=== PATIENT | female | born 1975 | race Caucasian/White ===

== ENCOUNTER 2016-03-20 17:31 | Emergency (ER) | payer OTHER ==
[2016-03-20 17:41] VITALS: BP 149/91; PULSE 75; TEMP 97.8; BMI 30.7
--- NOTE | 2016-03-20 19:48 | PDOC ---
History of Present Illness - General Chief Complaint: Migraine Headache Stated Complaint: HEADACHE Time Seen by Provider: 03/20/16 19:05 History Source: Patient Exam Limitations: No Limitations - History of Present Illness Timing/Duration: reports: 4-6 hours Severity: Yes: mild Associated Symptoms: reports: nausea/vomiting, other (photophobia/phonophobia) Past History - Travel Traveled outside of the country in the last 30 days: No Close contact w/someone who was outside of country & ill: No - Past Medical History Allergies/Adverse Reactions: Allergies Allergy/AdvReac Type Severity Reaction Status Date / Time No Known Allergies Allergy Verified 03/20/16 17:40 Home Medications: Ambulatory Orders No Home Medications 0 dose .ROUTE UTDICT 05/12/13 Anemia: No Asthma: No Cancer: No Cardiac Disorders: No CVA: No COPD: No CHF: No Dementia: No Diabetes: No GI Disorders: No Disorders: No HTN: No Hypercholesterolemia: No Liver Disease: No Seizures: No Thyroid Disease: No Other medical history: Migrane - Surgical History Abdominal Surgery: No Appendectomy: No Cardiac Surgery: No Cholecystectomy: No Lung Surgery: No Neurologic Surgery: No Orthopedic Surgery: No - Immunization History Immunization Up to Date: Yes - Psycho/Social/Smoking Cessation Hx Anxiety: No Suicidal Ideation: No Smoking History: Never smoked Number of Cigarettes Smoked Daily: 0 Information on smoking cessation initiated: No Hx Alcohol Use: No Drug/Substance Use Hx: No Substance Use Type: None Hx Substance Use Treatment: No Neuro Specific PMHX - Complaint Specific PMHX Migraine: Yes Review of Systems - Review of Systems Able to Perform ROS?: No Comments:: 03/20/16 20:59 CONSTITUTIONAL: Absent: fever, chills, diaphoresis, generalized weakness, malaise, loss of appetite HEENT: Absent: rhinorrhea, nasal congestion, throat pain, throat swelling, difficulty swallowing, mouth swelling, ear pain, eye pain, visual Changes CARDIOVASCULAR: Absent: chest pain, loss of consciousness, palpitations, irregular heart rate, peripheral edema RESPIRATORY: Absent: cough, shortness of breath, dyspnea with exertion, orthopnea, wheezing, stridor, hemoptysis GASTROINTESTINAL: Absent: abdominal pain, abdominal distension, nausea, vomiting, diarrhea, constipation, melena, hematochezia GENITOURINARY: Absent: dysuria, frequency, urgency, hesitancy, hematuria, flank pain, genital pain MUSCULOSKELETAL: Absent: myalgia, arthralgia, joint swelling SKIN: Absent: rash, itching, pallor HEMATOLOGIC/IMMUNOLOGIC: Absent: easy bleeding, easy bruising, lymphadenopathy, frequent infections ENDOCRINE: Absent: unexplained weight gain, unexplained weight loss, heat intolerance, cold intolerance NEUROLOGIC: +hearn Absent: focal weakness or paresthesias, dizziness, unsteady gait, seizure, mental status changes, bladder or bowel incontinence PSYCHIATRIC: Absent: anxiety, depression, suicidal or homicidal ideation, hallucinations. Is the patient limited [place]ian proficient: Yes *Physical Exam - Vital Signs Last Vital Signs Temp Pulse Resp BP Pulse Ox 97.8 F 75 18 149/91 96 03/20/16 17:39 03/20/16 17:39 03/20/16 17:39 03/20/16 17:39 03/20/16 17:39 - Physical Exam Comments: 03/20/16 20:59 GENERAL: Well developed, well nourished. Awake and alert. No acute distress. HEENT: Normocephalic, atraumatic. PERRLA, EOMI. No conjunctival pallor. Sclera are non- icteric. Moist mucous membranes. Oropharynx is clear. NECK: Supple. Full ROM. No JVD. Carotid pulses 2+ and symmetric, without bruits. No thyromegaly. No lymphadenopathy. CARDIOVASCULAR: Regular rate and rhythm. No murmurs, rubs, or gallops. Distal pulses are 2+ and symmetric. PULMONARY: No evidence of respiratory distress. Lungs clear to auscultation bilaterally. No wheezing, rales or rhonchi. ABDOMINAL: Soft. Non-tender. Non-distended. No rebound or guarding. No organomegaly. Normoactive bowel sounds. MUSCULOSKELETAL Normal range of motion at all joints. No bony deformities or tenderness. No CVA tenderness. EXTREMITIES: No cyanosis. No clubbing. No edema. No calf tenderness. SKIN: Warm and dry. Normal capillary refill. No rashes. No jaundice. NEUROLOGICAL: Alert, awake, appropriate. Cranial nerves 2-12 intact. No deficits to light touch and temperature in face, upper extremities and lower extremities. No motor deficits in the in face, upper extremities and lower extremities. Normoreflexic in the upper and lower extremities. Normal speech. Toes are down- going bilaterally. Gait is normal without ataxia. PSYCHIATRIC: Cooperative. Good eye contact. Appropriate mood and affect. ED Treatment Course - LABORATORY CBC & Chemistry Diagram: 03/20/16 20:05 03/20/16 20:05 Progress Note - Progress Note Progress Note: 40-year-old female presents to the emergency department complaining of frontal band-like migraine headache times approximately 4 hours. Patient states the pain is described as/10 dull nonradiating intermittent discomfort. The pain is associated with phonophobia, photophobia, nausea/vomiting but denies fever/ chills, visual disturbance, dizziness, lightheadedness, jaw pain, shortness of breath, chest pain, abdominal pains, back pain, extremity numbness or tingling sensation. There are no alleviating or exacerbating factors. Patient did not take any medication for pain relief. 2119hrs: Pain free. pt wants to be discharged *DC/Admit/Observation/Transfer Diagnosis at time of Disposition: Migraine Qualifiers: Migraine type: without aura Status migrainosus presence: without status migrainosus Intractability: not intractable Qualified Code(s): G43.009 - Migraine without aura, not intractable, without status migrainosus - Discharge Dispostion Disposition: HOME Condition at time of disposition: Improved - Referrals Referrals: Stephani Estrada [Primary Care Provider] - - Patient Instructions Printed Discharge Instructions: Migraine -- Adult Additional Instructions: Follow up with your physician and the neurologist listed on your discharge Increase fluids Retuen to the ER for severe/persistent/worsening symptoms
[2016-03-20] MEDS ORDERED: SODIUM CHLORIDE 1,000 ML IV STA (19:49)
[2016-03-20] MEDS ORDERED: METOCLOPRAMIDE HCL INJECTION 10 MG/2 ML VIAL IVPUSH ONE (19:49)
[2016-03-20] MEDS ORDERED: METOCLOPRAMIDE HCL INJECTION 10 MG/2 ML VIAL ONE (20:13)
[2016-03-20 20:23] LABS: BASOPHIL 0.8 % (0-2.0); EOSINOPHIL 0.2 % (0-4.5); MCH 27.2 pg (25.7-33.7); MCHC 32.8 g/dl (32.0-36.0); MEAN CELL VOLUME 82.9 fl (80-96); NEUTROPHILS 77.6 % (42.8-82.8); PLATELET COUNT 262 K/MM3 (134-434); RDW 13.1 % (11.6-15.6); WHITE BLOOD COUNT 7.8 K/mm3 (4.0-10.0)
[2016-03-20 20:55] LABS: ALBUMIN 4.1 g/dl (3.4-5.0); ALK PHOS 83 U/L (45-117); ANION GAP 9 (8-16); BILIRUBIN,TOTAL 0.6 mg/dL (0.2-1.0); CALCIUM 8.9 mg/dL (8.5-10.1); CO2 27 mmol/L (21-32); CREATININE 0.6 mg/dL (0.55-1.02); GLUCOSE,RANDOM 101 mg/dL (74-106); SGOT/AST 16 U/L (15-37); SGPT/ALT 13 U/L (12-78); TOT PROT 8.1 g/dl (6.4-8.2)
== END 2016-03-20 22:37 | disposition home or self-care (01) ==
LOC: JER 17:31
PROC: 3E033GC Introduction of Other Therapeutic Substance into Peripheral Vein, Percutaneous Approach (ICD-10-PCS; principal; 2016-03-20)
PROC: 3E0337Z Introduction of Electrolytic and Water Balance Substance into Peripheral Vein, Percutaneous Approach (ICD-10-PCS; 2016-03-20)
DX: G43.009 Migraine without aura, not intractable, without status migrainosus (principal)
CPT/HCPCS: 36415; 80053; 85025; 96361; 96374; 99282-25

== ENCOUNTER → 2017-06-21 | Day surgery (SDC) | payer OTHER ==
--- NOTE | 2017-06-22 11:29 | PATH ---
Surgical Pathology Report Patient Name: JOHNSON ANGELES [facility]. Rec. #: [id number] /Age/Gender: 1975 (Age: 41) / F Account: [id number] Location: [facility] Taken: 06/21/2017 Received: 06/21/2017 Reported: 06/22/2017 Physicians: Dilma Cintron M.D. 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 Electronically Signed Pina Amezcua M.D. Gross Description Received in formalin labeled "left 4:00," are 4 mckeon-yellow, cylindrical portions of fibroadipose tissue ranging from 0.4-1.1 cm in length and averaging 0.1 cm in diameter. The specimens are submitted in toto in one cassette. Total formalin fixation time: Approximately 6 hours 06/21/201706/21/2017
== END | disposition home or self-care (01) ==
LOC: JRADUS-SUR 10:58
PROVIDERS: ATTEND Family Medicine Geriatric Medicine
PROC: 0HBU3ZX Excision of Left Breast, Percutaneous Approach, Diagnostic (ICD-10-PCS; principal; 2017-06-21)
DX: D24.2 Benign neoplasm of left breast (principal)
CPT/HCPCS: 19083; 87899; 88305-TC; A4648

== ENCOUNTER 2018-04-04 16:57 | Emergency (ER) | payer OTHER ==
[2018-04-04 17:09] VITALS: BP 143/65; PULSE 76; TEMP 97.8; BMI 26.6
[2018-04-04] MEDS ORDERED: KETOROLAC TROMETHAMINE 30 MG/1 ML VIAL IM ONE (17:09)
[2018-04-04] MEDS ORDERED: diazePAM 5 MG TABLET PO ONE (17:09)
--- NOTE | 2018-04-04 17:09 | PDOC ---
Rapid Medical Evaluation Time Seen by Provider: 04/04/18 17:06 Medical Evaluation: Allergies Allergy/AdvReac Type Severity Reaction Status Date / Time No Known Allergies Allergy Verified 04/04/18 17:06 04/04/18 17:07 I have performed a brief in-person evaluation of this patient. The patient presents with a chief complaint of: right lower back pain radiating into right buttock and right lower leg Denies heavy lifting or fall. States no fever or chills Pertinent physical exam findings: NAD even and unlabored breathing +tenderness to right lumbar region I have ordered the following: analgesia The patient will proceed to the ED for further evaluation.
[2018-04-04] MEDS ORDERED: KETOROLAC TROMETHAMINE 60 MG/2 ML VIAL IM ONE (18:25)
[2018-04-04] MEDS ORDERED: KETOROLAC TROMETHAMINE 60 MG/2 ML VIAL ONE (18:29)
--- NOTE | 2018-04-04 18:46 | PDOC ---
History of Present Illness - General Chief Complaint: Back Pain Stated Complaint: BACK PAIN Time Seen by Provider: 04/04/18 17:06 - History of Present Illness Initial Comments: 04/04/18 18:38 42-year-old female without comorbidities presents for evaluation of right-sided mid and upper back pain 2 days. no systemic symptoms. Past History - Past Medical History Allergies/Adverse Reactions: Allergies Allergy/AdvReac Type Severity Reaction Status Date / Time No Known Allergies Allergy Verified 04/04/18 17:06 Home Medications: Ambulatory Orders No Home Medications 0 dose .ROUTE UTDICT 05/12/13 Cyclobenzaprine HCl [Flexeril 10 mg] 10 mg PO HS PRN #10 tablet 04/04/18 Ibuprofen [Motrin -] 600 mg PO TID #30 tablet 04/04/18 Anemia: No Asthma: No Cancer: No Cardiac Disorders: No CVA: No COPD: No CHF: No Dementia: No Diabetes: No GI Disorders: No Disorders: No HTN: No Hypercholesterolemia: No Liver Disease: No Seizures: No Thyroid Disease: No - Surgical History Abdominal Surgery: No Appendectomy: No Cardiac Surgery: No Cholecystectomy: No Lung Surgery: No Neurologic Surgery: No Orthopedic Surgery: No - Immunization History Immunization Up to Date: Yes - Suicide/Smoking/Psychosocial Hx Smoking History: Never smoked Number of Cigarettes Smoked Daily: 0 Hx Alcohol Use: No Drug/Substance Use Hx: No Substance Use Type: None Hx Substance Use Treatment: No Review of Systems - Review of Systems Constitutional: No: Fever Musculoskeletal: Yes: Back Pain *Physical Exam - Vital Signs Last Vital Signs Temp Pulse Resp BP Pulse Ox 97.8 F 76 18 143/65 99 04/04/18 17:07 04/04/18 17:07 04/04/18 17:07 04/04/18 17:07 04/04/18 17:07 - Physical Exam Comments: 04/04/18 18:39 The rectal lumbar spine skin color and temperature are normal. Range of motion is full. There is moderate right-sided thoracolumbar musculature spasm and tenderness. No gross sensorimotor deficits in bilateral upper extremities. No gross sensorimotor deficits in bilateral lower extremities. 5 out of 5 strength in bilateral upper and lower extremities. Neurovascularly intact. Moderate Sedation - Procedure Monitoring Vital Signs: Procedure Monitoring Vital Signs Temperature 97.8 F 04/04/18 17:07 Pulse Rate 76 04/04/18 17:07 Respiratory Rate 18 04/04/18 17:07 Blood Pressure 143/65 04/04/18 17:07 O2 Sat by Pulse Oximetry (%) 99 04/04/18 17:07 ED Treatment Course - Medications Given in the ED: ED Medications Discontinued Medications Generic Name Dose Route Start Last Admin Trade Name Freq PRN Reason Stop Dose Admin Diazepam 5 mg 04/04/18 17:09 04/04/18 18:33 Valium - PO 04/04/18 17:10 Not Given ONCE ONE Ketorolac Tromethamine 30 mg 04/04/18 17:09 04/04/18 18:32 Toradol Injection - IM 04/04/18 17:10 Not Given ONCE ONE Ketorolac Tromethamine 60 mg 04/04/18 18:25 04/04/18 18:32 Toradol Injection - IM 04/04/18 18:26 60 mg ONCE ONE Administration *DC/Admit/Observation/Transfer Diagnosis at time of Disposition: Back pain - Discharge Dispostion Disposition: HOME Condition at time of disposition: Improved Decision to Admit order: No - Prescriptions Prescriptions: Cyclobenzaprine HCl [Flexeril 10 mg] 10 mg PO HS PRN #10 tablet PRN Reason: Muscle Spasms Ibuprofen [Motrin -] 600 mg PO TID #30 tablet - Referrals Referrals: Stephani Estrada [Primary Care Provider] - Mustapha Go MD [Staff Physician] - - Patient Instructions Printed Discharge Instructions: Low Back Pain, DI for Low Back Pain Additional Instructions: Please take the Motrin with food. Its one tablet 3 times a day as needed for pain. Discontinue the medication if it bothers her stomach. The muscle relaxers one tablet before bedtime. Will make you sleepy. Return to the emergency room should symptoms worsen or go unresolved and follow-up with spine surgery in 2-3 days for further evaluation and treatment options. If you need additional medication for pain he may take Tylenol as directed. - Post Discharge Activity
== END 2018-04-04 19:02 | disposition home or self-care (01) ==
LOC: JERFT 16:57
PROC: 3E0233Z Introduction of Anti-inflammatory into Muscle, Percutaneous Approach (ICD-10-PCS; principal; 2018-04-04)
DX: M62.830 Muscle spasm of back (principal); M54.5 Low back pain
CPT/HCPCS: 96372; 99281-25

== ENCOUNTER 2020-07-26 20:22 | Emergency (ER) | payer OTHER ==
[2020-07-26 20:41] VITALS: BP 137/88; PULSE 75; TEMP 98; BMI 32.3
[2020-07-26] MEDS ORDERED: KETOROLAC TROMETHAMINE 30 MG/1 ML VIAL IM ONE (21:39)
[2020-07-26] MEDS ORDERED: KETOROLAC TROMETHAMINE 30 MG/1 ML VIAL ONE (21:48)
== END 2020-07-26 22:06 | disposition home or self-care (01) ==
LOC: JER 20:22 → JERFT 20:22
PROC: 3E0233Z Introduction of Anti-inflammatory into Muscle, Percutaneous Approach (ICD-10-PCS; principal; 2020-07-26)
DX: M25.461 Effusion, right knee (principal)
CPT/HCPCS: 73562-TC-RT-FY; 99284-25

== ENCOUNTER 2020-12-23 18:24 | Emergency (ER) | payer OTHER ==
[2020-12-23 18:41] VITALS: BP 138/85; PULSE 77; TEMP 98.7; BMI 31.4
[2020-12-23] MEDS ORDERED: KETOROLAC TROMETHAMINE 30 MG/1 ML VIAL IM ONE (20:04)
[2020-12-23] MEDS ORDERED: KETOROLAC TROMETHAMINE 30 MG/1 ML VIAL ONE (20:06)
== END 2020-12-23 20:44 | disposition home or self-care (01) ==
LOC: JERFT 18:24
PROC: 3E0233Z Introduction of Anti-inflammatory into Muscle, Percutaneous Approach (ICD-10-PCS; principal; 2020-12-23)
DX: M25.561 Pain in right knee (principal)
CPT/HCPCS: 73562-TC-RT-FY; 96372; 99284-25

== ENCOUNTER 2021-02-01 19:29 | Emergency (ER) | payer OTHER ==
[2021-02-01 19:39] VITALS: BMI 31.4
[2021-02-01 19:58] VITALS: BP 128/71; PULSE 73; TEMP 98.6
[2021-02-01] MEDS ORDERED: KETOROLAC TROMETHAMINE 60 MG/2 ML VIAL IM ONE (20:50)
[2021-02-01] MEDS ORDERED: KETOROLAC TROMETHAMINE 60 MG/2 ML VIAL ONE (20:59)
== END 2021-02-01 21:04 | disposition home or self-care (01) ==
LOC: FER 19:29
PROC: 3E0233Z Introduction of Anti-inflammatory into Muscle, Percutaneous Approach (ICD-10-PCS; principal; 2021-02-01)
DX: M10.061 Idiopathic gout, right knee (principal); M10.071 Idiopathic gout, right ankle and foot
CPT/HCPCS: 99284-25

== ENCOUNTER 2021-07-19 20:41 | Emergency (ER) | payer OTHER ==
[2021-07-19 20:46] VITALS: BP 133/85; PULSE 71; TEMP 98.1; BMI 31.6
[2021-07-20] MEDS ORDERED: KETOROLAC TROMETHAMINE 30 MG/1 ML VIAL IM ONE (00:24)
[2021-07-20] MEDS ORDERED: KETOROLAC TROMETHAMINE 30 MG/1 ML VIAL ONE (00:33)
== END 2021-07-20 00:39 | disposition home or self-care (01) ==
LOC: JER 20:41 → JERFT 20:41 → JER 07-20 00:39
PROC: 3E0233Z Introduction of Anti-inflammatory into Muscle, Percutaneous Approach (ICD-10-PCS; principal; 2021-07-19)
DX: M79.661 Pain in right lower leg (principal); R22.41 Localized swelling, mass and lump, right lower limb
CPT/HCPCS: 73610-TC-RT-FY; 73630-TC-RT-FY; 93971-TC; 99284-25

== ENCOUNTER 2022-05-16 23:05 | Emergency (ER) | payer OTHER ==
[~2022-05-16 23:05] MED LIST: LIDOCAINE PATCH REMOVAL MC SCH
[2022-05-16 23:14] VITALS: BP 150/74; PULSE 78; RESP 18; TEMP 98.2; BMI 34.3
[2022-05-16] MEDS ORDERED: LIDOCAINE 5% TOPICAL PATCH TP ONE (23:44)
[2022-05-16] MEDS ORDERED: KETOROLAC TROMETHAMINE 15 MG/ML VIAL IM ONE (23:45)
[2022-05-16] MEDS ORDERED: METHOCARBAMOL 500 MG TABLET PO ONE (23:45)
[2022-05-16] MEDS ORDERED: ACETAMINOPHEN 500 MG TABLET (FP) PO ONE (23:50)
[2022-05-16] MEDS ORDERED: LIDOCAINE 5% TOPICAL PATCH ONE (23:51)
[2022-05-16] MEDS ORDERED: METHOCARBAMOL 500 MG TABLET ONE (23:51)
[2022-05-16] MEDS ORDERED: ACETAMINOPHEN 500 MG TABLET (FP) ONE (23:54)
[2022-05-17] MEDS ORDERED: LIDOCAINE 5% TOPICAL PATCH TP ONE (00:48)
[2022-05-17] MEDS ORDERED: LIDOCAINE 5% TOPICAL PATCH ONE (00:51)
[2022-05-17] MEDS ORDERED: KETOROLAC TROMETHAMINE 15 MG/ML VIAL IM ONE (00:55)
[2022-05-17] MEDS ORDERED: KETOROLAC TROMETHAMINE 15 MG/ML VIAL ONE (00:57)
[2022-05-17] MEDS ORDERED: LIDOCAINE PATCH REMOVAL MC SCH (22:00)
== END 2022-05-17 02:09 | disposition home or self-care (01) ==
LOC: JER 23:05
PROC: 3E0233Z Introduction of Anti-inflammatory into Muscle, Percutaneous Approach (ICD-10-PCS; principal; 2022-05-16)
DX: M54.2 Cervicalgia (principal)
CPT/HCPCS: 84703; 99284-25